=== PATIENT | female | born 1965 | race Caucasian/White ===

== ENCOUNTER 2019-09-22 23:11 | Observation (INO) ==
[2019-09-23 01:29] LABS: Bilirubin,Urine Negative (Negative); Blood,Urine Large (Negative); Clarity,Urine Clear (Clear); Color,Urine Yellow (Yellow); Glucose,Urine (UA) Normal (Normal); Ketones,Urine Trace mg/dL (Negative); Leukocyte Esterase,Urine Negative (Negative); Nitrite,Urine Negative (Negative); Protein,Urine 30 mg/dL (Neg-Trace); Specific Gravity,Urine >= 1.030 (1.010-1.025); Urobilinogen,Urine Normal (Normal)
[2019-09-23 01:30] LABS: Basophils # 0.1 K/mcL (0.0-0.2); Basophils % 0.7 %; Eosinophils # 0.2 K/mcL (0.0-0.6); Eosinophils % 2.4 %; Hematocrit 39.6 % (35.3-44.9); Immature Granulocytes % 0.5 % (0-4); Lymphocytes # 2.3 K/mcL (0.6-4.6); Lymphocytes % 24.7 %; Mean Corpuscular HGB Conc 32.8 g/dL (31.6-35.5); Mean Corpuscular Volume 94.5 fL (83.0-100.0); Mean Platelet Volume 9.9 fL (9.4-12.4); Monocytes # 0.6 K/mcL (0.0-1.3); Monocytes % 6.3 %; Platelet Count 206 K/mcL (140-400); Red Blood Count 4.19 M/mcL (3.82-4.97); Segmented Neutrophils % 65.4 %; White Blood Count 9.2 K/mcL (4.3-11.1)
[2019-09-23 01:30] LABS: Bacteria,Urine None Seen per hpf (None-Few); Hyaline Casts,Urine None Seen per lpf (None-Few); RBC,Urine 0-3 per hpf (0-3); Squamous Epithelial Cell,Urine Many per lpf (None-Few)
[2019-09-23 01:39] LABS: Calcium Oxalate Crystals,Urine Present
[2019-09-23 01:45] LABS: BUN/Creatinine Ratio 12 (6-26); Blood Urea Nitrogen 14 mg/dL (6-20); Calcium 9.2 mg/dL (8.6-10.3); Carbon Dioxide 24 mEq/L (23-29); Chloride 106 mEq/L (98-107); Glucose 200 mg/dL (70-105); Osmolality,Calculated 292 (280-300); Potassium 4.1 mEq/L (3.5-5.1); Sodium 138 mEq/L (136-145); eGFR For African Americans > 60 (> 60); eGFR For Non-African Americans 50 (> 60)
[2019-09-23] MEDS ORDERED: Aspirin 81 MG TAB.CHEW PO ONE (02:36)
[2019-09-23] MEDS ORDERED: Naloxone 0.4 MG/ML INJ IVP PRN (08:17)
[2019-09-23] MEDS ORDERED: D5% in Water 1,000 ML IVC PRN (08:19)
[2019-09-23] MEDS ORDERED: Dextrose Gel 15 GM/37.5 ML TUBE PO PRN ×2 (08:19)
[2019-09-23] MEDS ORDERED: *HR* Dextrose 50 % in Water (Syg) 50 ML SYRINGE IVP PRN (08:19)
[2019-09-23] MEDS ORDERED: Insulin LISPRO 300 UNITS/3 ML VIAL SQ SCH (11:30)
[2019-09-23 12:27] VITALS: BP 127/75
== END 2019-09-23 15:00 | disposition home or self-care (01) ==
LOC: EMEROOARM 23:11 → 3BNU 23:11 → SUATTDRO 09-23 03:53 → 3BNU 09-23 04:51
PROVIDERS: ADMIT Internal Medicine; ATTEND Internal Medicine

== ENCOUNTER 2020-02-15 16:36 | Observation (INO) ==
[2020-02-15 17:27] LABS: Basophils # 0.1 K/mcL (0.0-0.2); Basophils % 0.6 %; Eosinophils # 0.2 K/mcL (0.0-0.6); Eosinophils % 2.3 %; Hematocrit 40.2 % (35.3-44.9); Hemoglobin 12.9 g/dL (11.5-15.4); Immature Granulocytes % 0.3 % (0-4); Lymphocytes # 2.6 K/mcL (0.6-4.6); Lymphocytes % 32.1 %; Mean Corpuscular HGB Conc 32.1 g/dL (31.6-35.5); Mean Corpuscular Hemoglobin 29.9 pg (28.0-33.3); Mean Corpuscular Volume 93.1 fL (83.0-100.0); Mean Platelet Volume 10.1 fL (9.4-12.4); Monocytes # 0.4 K/mcL (0.0-1.3); Monocytes % 5.5 %; Neutrophils # 4.7 K/mcL (1.6-8.9); Platelet Count 190 K/mcL (140-400); Red Blood Count 4.32 M/mcL (3.82-4.97); Red Cell Distribution Width 12.6 % (11.5-14.5); Segmented Neutrophils % 59.2 %; White Blood Count 7.9 K/mcL (4.3-11.1)
[2020-02-15 17:44] LABS: BUN/Creatinine Ratio 11 (6-26); Blood Urea Nitrogen 12 mg/dL (6-20); Calcium 8.9 mg/dL (8.6-10.3); Carbon Dioxide 24 mEq/L (23-29); Chloride 104 mEq/L (98-107); Glucose 288 mg/dL (70-105); Osmolality,Calculated 294 (280-300); Potassium 3.8 mEq/L (3.5-5.1); Sodium 137 mEq/L (136-145); eGFR For African Americans > 60 (> 60); eGFR For Non-African Americans 54 (> 60)
[2020-02-15 17:47] LABS: Bilirubin,Urine Negative (Negative); Blood,Urine Large (Negative); Clarity,Urine Cloudy (Clear); Color,Urine Yellow (Yellow); Glucose,Urine (UA) 250 mg/dL (Normal); Ketones,Urine Trace mg/dL (Negative); Leukocyte Esterase,Urine Small (Negative); Nitrite,Urine Negative (Negative); Protein,Urine 100 mg/dL (Neg-Trace); Specific Gravity,Urine 1.029 (1.010-1.025); Urobilinogen,Urine Normal (Normal)
[2020-02-15 17:50] LABS: Bacteria,Urine None Seen per hpf (None-Few); Hyaline Casts,Urine None Seen per lpf (None-Few); RBC,Urine TNTC per hpf (0-3); Squamous Epithelial Cell,Urine Many per lpf (None-Few); WBC,Urine 50-100 per hpf (0-3)
[2020-02-15 17:53] LABS: Troponin I < 0.03 ng/mL (< 0.04)
[2020-02-15] MEDS ORDERED: cefTRIAXone 1,000 MG in Water for inj. (sterile) 10 ML IVP ONE ×2 (18:25→23:24)
[2020-02-15] MEDS ORDERED: 0.9 % Sodium Chloride 1,000 ML IVC ONE (18:29)
[2020-02-15] MEDS ORDERED: *HR* Dextrose 50 % in Water (Syg) 50 ML SYRINGE IVP PRN (23:16)
[2020-02-15] MEDS ORDERED: D5% in Water 1,000 ML IVC PRN (23:16)
[2020-02-15] MEDS ORDERED: Naloxone 0.4 MG/ML INJ IVP PRN ×2 (23:16→23:25)
[2020-02-15] MEDS ORDERED: Ondansetron ODT 4 MG TAB.RAPDIS SL PRN (23:16)
[2020-02-15] MEDS ORDERED: Dextrose Gel 15 GM/37.5 ML TUBE PO PRN ×2 (23:16)
[2020-02-15] MEDS ORDERED: *HR* Labetalol 20 MG/4 ML SYRINGE IVP PRN (23:24)
[2020-02-15] MEDS ORDERED: Ringers Solution, Lactated 1,000 ML IVC SCH (23:30)
[2020-02-16 01:35] LABS: Lipase 62 Units/L (11-82)
[2020-02-16 01:49] LABS: Thyroid Stimulating Hormone 2.396 mcIU/mL (0.340-5.600)
[2020-02-16] MEDS: Insulin LISPRO 300 UNITS/3 ML VIAL SQ SCH ×4 (01:58→15:03)
[2020-02-16] MEDS: cefTRIAXone 2,000 MG in Water for inj. (sterile) 20 ML IVPB SCH (07:28)
[2020-02-16 07:47] LABS: Prothrombin Time 11.7 Seconds (9.4-12.1)
[2020-02-16 07:52] LABS: Basophils # 0.1 K/mcL (0.0-0.2); Basophils % 0.9 %; Eosinophils # 0.2 K/mcL (0.0-0.6); Eosinophils % 2.9 %; Hematocrit 37.7 % (35.3-44.9); Hemoglobin 11.8 g/dL (11.5-15.4); Immature Granulocytes % 0.3 % (0-4); Lymphocytes # 2.2 K/mcL (0.6-4.6); Lymphocytes % 33.3 %; Mean Corpuscular HGB Conc 31.3 g/dL (31.6-35.5); Mean Corpuscular Hemoglobin 29.4 pg (28.0-33.3); Mean Corpuscular Volume 93.8 fL (83.0-100.0); Mean Platelet Volume 10.1 fL (9.4-12.4); Monocytes # 0.5 K/mcL (0.0-1.3); Monocytes % 7.3 %; Neutrophils # 3.6 K/mcL (1.6-8.9); Platelet Count 163 K/mcL (140-400); Red Blood Count 4.02 M/mcL (3.82-4.97); Red Cell Distribution Width 12.5 % (11.5-14.5); Segmented Neutrophils % 55.3 %; White Blood Count 6.6 K/mcL (4.3-11.1)
[2020-02-16 08:02] LABS: Alanine Aminotransferase 38 Units/L (7-52); Albumin 3.9 g/dL (3.5-5.7); Albumin/Globulin Ratio 1.6 (1.1-2.2); Alkaline Phosphatase 72 Units/L (34-104); Aspartate Amino Transferase 39 Units/L (13-39); BUN/Creatinine Ratio 13 (6-26); Bilirubin,Total 0.5 mg/dL (0.3-1.0); Blood Urea Nitrogen 12 mg/dL (6-20); Calcium 8.4 mg/dL (8.6-10.3); Carbon Dioxide 24 mEq/L (23-29); Chloride 108 mEq/L (98-107); Globulin 2.5 g/dL (2.4-3.5); Glucose 191 mg/dL (70-105); Magnesium 1.7 mg/dL (1.6-2.6); Osmolality,Calculated 295 (280-300); Phosphorous 3.3 mg/dL (2.7-4.5); Potassium 3.7 mEq/L (3.5-5.1); Sodium 140 mEq/L (136-145); Total Protein 6.4 g/dL (6.4-8.9); Troponin I < 0.03 ng/mL (< 0.04); eGFR For African Americans > 60 (> 60); eGFR For Non-African Americans > 60 (> 60)
[2020-02-16] MEDS ORDERED: BuPROPion XL (24 HR) 150 MG TABLET PO SCH (14:00)
[2020-02-16] MEDS: *HR* Heparin 5,000 UNIT/ML VIAL SQ SCH (18:06)
[2020-02-16] MEDS: Topiramate 25 MG TABLET PO SCH (20:58)
[2020-02-16] MEDS ORDERED: Insulin LISPRO 300 UNITS/3 ML VIAL SQ SCH (21:00)
[2020-02-17] MEDS: *HR* Heparin 5,000 UNIT/ML VIAL SQ SCH (05:32)
[2020-02-17] MEDS: Topiramate 25 MG TABLET PO SCH (07:57)
[2020-02-17] MEDS: cefTRIAXone 2,000 MG in Water for inj. (sterile) 20 ML IVPB SCH (07:58)
[2020-02-17] MEDS: Insulin LISPRO 300 UNITS/3 ML VIAL SQ SCH ×2 (08:54→12:26)
[2020-02-17] MEDS ORDERED: BuPROPion XL (24 HR) 150 MG TABLET PO SCH (09:00)
[2020-02-17] MEDS ORDERED: Multivit/Ca/Min/Fe/FA 1 TAB TABLET PO SCH (09:00)
[2020-02-17] MEDS ORDERED: FLUoxetine 20 MG CAPSULE PO SCH (09:00)
[2020-02-17] MEDS ORDERED: ARIPiprazole 5 MG TABLET PO SCH (09:00)
[2020-02-17] MEDS ORDERED: atenoloL 50 MG TABLET PO SCH (09:00)
[2020-02-17 12:23] VITALS: BP 133/62
[2020-02-18] MEDS ORDERED: BuPROPion SR (12 HR) 150 MG TABLET PO SCH ×2 (09:00→14:00)
== END 2020-02-17 16:27 | disposition home or self-care (01) ==
LOC: EMEROOARM 16:36 → 2NENU 16:36 → SUATTDRO 21:01 → 2NENU 21:39
PROVIDERS: ADMIT Internal Medicine; ATTEND Internal Medicine

== ENCOUNTER 2020-04-14 09:51 | Observation (INO) ==
[~2020-04-14 09:51] MED LIST: *HR* FentaNYL (PF) 100 MCG/2 ML VIAL IVP ONE; *HR* Midazolam HCl 2 MG/2 ML VIAL IVP ONE
[2020-04-14] MEDS ORDERED: CeFAZolin Syr 2,000MG/20 ML 2,000 MG/20 ML SYRINGE IVPB ONE (10:16)
[2020-04-14] MEDS ORDERED: Ringers Solution, Lactated 1,000 ML IVC SCH ×2 (10:30→11:45)
[2020-04-14 10:47] LABS: Prothrombin Time 11.4 Seconds (9.4-12.1)
[2020-04-14] MEDS ORDERED: *HR* HYDROmorphone PF 0.5 MG/0.5 ML SYRINGE IVP PRN (11:32)
[2020-04-14] MEDS ORDERED: *HR* OxyCODONE Immed Rel 5 MG TABLET PO PRN (11:32)
[2020-04-14] MEDS ORDERED: Ondansetron 4 MG/2 ML VIAL IVP ONE (11:32)
[2020-04-14] MEDS ORDERED: Lidocaine/EPI 1:100k 1% 50 ML VIAL ONE (12:22)
[2020-04-14] MEDS ORDERED: 0.9 % Sodium Chloride 500 ML ONE (12:22)
[2020-04-14] MEDS ORDERED: *HR* FentaNYL (PF) 100 MCG/2 ML VIAL IVP ONE (13:02)
[2020-04-14] MEDS ORDERED: Iopamidol 100 ML in 0.9 % Sodium Chloride 50 ML IVP ONE (13:23)
[2020-04-14] MEDS ORDERED: *HR* Propofol 200 MG/20 ML VIAL IVP ONE ×2 (14:36→15:27)
[2020-04-14] MEDS ORDERED: *HR* Midazolam HCl 2 MG/2 ML VIAL ONE (14:37)
[2020-04-14] MEDS ORDERED: Lidocaine -MPF 2% 2 ML VIAL ONE (14:37)
[2020-04-14] MEDS ORDERED: *HR* Succinylcholine 200 MG/10 ML VIAL IVP ONE (14:37)
[2020-04-14] MEDS ORDERED: *HR* FentaNYL (PF) 100 MCG/2 ML VIAL ONE (14:37)
[2020-04-14] MEDS ORDERED: Isovue-300 50ML VIAL ONE ×2 (14:43→15:10)
[2020-04-14] MEDS ORDERED: *HR* Rocuronium Bromide 50 MG/5 ML VIAL ONE (15:27)
[2020-04-14] MEDS ORDERED: *HR* Metoprolol 5 MG/5 ML VIAL IVP ONE ×2 (15:29→15:45)
[2020-04-14] MEDS ORDERED: Ondansetron 4 MG/2 ML VIAL ONE (15:53)
[2020-04-14] MEDS ORDERED: Neostigmine Methylsulfate 3 MG/3 ML SYRINGE ONE (15:54)
[2020-04-14] MEDS ORDERED: Naloxone 0.4 MG/ML INJ IVP PRN (15:59)
[2020-04-14] MEDS ORDERED: Ondansetron 4 MG/2 ML VIAL IVP PRN (15:59)
[2020-04-14] MEDS: Ketorolac 30 MG/ML VIAL IVP SCH (18:05)
[2020-04-14] MEDS: 0.9 % Sodium Chloride 1,000 ML IVC SCH (18:05)
[2020-04-14] MEDS: Acetaminophen IV 1,000 MG/100 ML BAG IVPB SCH (18:14)
[2020-04-15] MEDS: Acetaminophen IV 1,000 MG/100 ML BAG IVPB SCH ×2 (00:53→05:46)
[2020-04-15] MEDS: Ketorolac 30 MG/ML VIAL IVP SCH ×2 (00:54→05:45)
[2020-04-15] MEDS: 0.9 % Sodium Chloride 1,000 ML IVC SCH (04:03)
[2020-04-15 05:34] LABS: Basophils # 0.1 K/mcL (0.0-0.2); Basophils % 0.5 %; Eosinophils # 0.1 K/mcL (0.0-0.6); Eosinophils % 1.4 %; Hematocrit 32.5 % (35.3-44.9); Hemoglobin 10.5 g/dL (11.5-15.4); Immature Granulocytes % 0.4 % (0-4); Lymphocytes # 2.6 K/mcL (0.6-4.6); Lymphocytes % 26.3 %; Mean Corpuscular HGB Conc 32.3 g/dL (31.6-35.5); Mean Corpuscular Hemoglobin 30.5 pg (28.0-33.3); Mean Corpuscular Volume 94.5 fL (83.0-100.0); Monocytes # 0.6 K/mcL (0.0-1.3); Monocytes % 6.2 %; Neutrophils # 6.5 K/mcL (1.6-8.9); Platelet Count 181 K/mcL (140-400); Red Blood Count 3.44 M/mcL (3.82-4.97); Red Cell Distribution Width 12.9 % (11.5-14.5); Segmented Neutrophils % 65.2 %
[2020-04-15 05:52] LABS: BUN/Creatinine Ratio 14 (6-26); Blood Urea Nitrogen 15 mg/dL (6-20); Calcium 7.7 mg/dL (8.6-10.3); Carbon Dioxide 29 mEq/L (23-29); Chloride 100 mEq/L (98-107); Glucose 199 mg/dL (70-105); Osmolality,Calculated 290 (280-300); Potassium 4.2 mEq/L (3.5-5.1); Sodium 137 mEq/L (136-145); eGFR For African Americans > 60 (> 60); eGFR For Non-African Americans 54 (> 60)
[2020-04-15 07:48] VITALS: BP 122/75
[2020-04-19 10:10] LABS: Calculi Mass 986 mg
== END 2020-04-15 11:22 | disposition home or self-care (01) ==
LOC: 3ANU 09:51 → SAMDAY 09:51 → 3ANU 17:13
PROVIDERS: ADMIT Urology; ATTEND Urology